=== PATIENT | male | born 1950 | race Hispanic/Latino ===

== ENCOUNTER → 2025-05-01 | Outpatient (CLI) | payer MEDICARE, MEDICAID ==
--- NOTE | 2025-05-01 13:30 | NUR ---
MBSS COMPLETED (OUTPATIENT). Aspiration after the swallow with pudding and moderately thick liquids via tsp with delayed cough response. RECOMMEND: NPO, PEG tube feedings NOTE: Pt currently on PEG tube feedings after being diagnosed with dysphagia during a hospitalization at [facility] 6 weeks ago due to seizures. 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 As per , patient was eating a regular solid, thin liquid diet prior to hospitalization with no s/s of aspiration. DIAGNOSTIC FINDINGS: Pt presented with moderate to severe oropharyngeal dysphagia characterized by decreased oral motor strength, ROM, and coordination; decreased tongue base retraction; delayed pharyngeal response trigger; decreased hyo-laryngeal elevation/excursion and decreased epiglottic inversion evidenced by decreased labial closure with anterior spillage, decreased bolus formation and manipulation with residue; tongue pumping; slow oral transit time; premature spillage to valleculae with spillover to pyriform sinuses; residue on base of tongue, valleculae, pyriform sinuses and posterior pharyngeal wall unable to clear resulting in aspiration after the swallow with pudding and moderately thick liquids via tsp with delayed cough response. Exam terminated at this time due to severity of dysphagia. HOT HEAD MACHINE OPERATOR reviewed results and recommendations with patient and . HOT HEAD MACHINE OPERATOR educated patient on risks and consequences of aspiration. Speech therapy warranted at this time to address oropharyngeal dysphagia. All questions answered. Addendum: 05/01/[address] TALYA HUFF Amended: Links added. Addendum: 05/01/[address] [facility] Additional information to NOTES: Pt edentulous, left sided facial droop and with tongue deviation to the left.
--- NOTE | 2025-05-03 16:48 | HMCIMG ---
MODIFIED BARIUM SWALLOW W CINE REASON: Gastrostomy status; Dysphagia, oropharyngeal phase FINDINGS: Fluoroscopic assistance was provided to the speech pathologist while performing examination. For findings and dietary recommendations, refer to speech pathologist's report. FLUORO TIME: 3.2 minutes IMPRESSION: Modified barium swallow as described.
== END | disposition home or self-care (01) ==
LOC: RAH 13:09
PROVIDERS: ATTEND Internal Medicine Gastroenterology
DX: R13.12 Dysphagia, oropharyngeal phase (principal); Z93.1 Gastrostomy status
CPT/HCPCS: 74230; 92611